=== PATIENT | male | born 1995 | race American Indian/Alaskan Native ===

== ENCOUNTER 2019-02-09 18:22 | Emergency (ER) | payer SELFPAY ==
--- NOTE | 2019-02-09 19:51 | Event Note ---
ED Screening Note ED Screening Note: states that his left elbow locked up and he is not able to move it no fall or injury no heavy lifting no pmhx no allergies to meds This initial assessment/diagnostic orders/clinical plan/treatment(s) is/are subject to change based on patients health status, clinical progression and re- assessment by fellow clinical providers in the ED. Further treatment and workup at subsequent clinical providers discretion. Patient/guardian urged not to elope from the ED as their condition may be serious if not clinically assessed and managed. Initial orders include: XR left elbow
--- NOTE | 2019-02-09 21:04 | XRay Report ---
LEFT ELBOW 4 VIEWS INDICATION / CLINICAL INFORMATION: left elbow in locked position, pain with flexion COMPARISON: None available. FINDINGS: BONES and JOINT(S): No acute fracture or subluxation. No significant arthritis. SOFT TISSUES: There is a small joint effusion without an additional significant soft tissue abnormali ties. ADDITIONAL FINDINGS: None. IMPRESSION: Small left elbow joint effusion without an acute osseous abnormality. Signer Name: Zohaib Tran MD Signed: 02/09/2019 9:00 PM Workstation Name: [id number]
--- NOTE | 2019-02-09 22:43 | Emergency Department Report ---
ED General Adult HPI - General Chief complaint: Extremity Injury, Upper Stated complaint: LFT ELBOW LOCKED/PAIN Time Seen by Provider: 02/09/19 19:49 Source: patient Mode of arrival: Ambulatory Limitations: No Limitations - History of Present Illness Initial comments: Patient presents to the emergency department with a chief complaint left elbow pain 2 days. Patient states that the pain started 2 days ago after moving. Patient states he's had this once before secondary to increased movement. Patient denies any other injury or trauma to that region. -: Sudden Location: upper extremity Radiation: non-radiation Severity scale (0 -10): 6 Quality: sharp Consistency: constant Improves with: rest Worsens with: movement Associated Symptoms: denies other symptoms Treatments Prior to Arrival: none - Related Data Previous Rx's Medication Instructions Recorded Last Taken Type Naproxen [Naprosyn] 500 mg PO BID PRN #20 tablet 02/09/19 Unknown Rx predniSONE [Deltasone] 20 mg PO DAILY #15 tablet 02/09/19 Unknown Rx Allergies Allergy/AdvReac Type Severity Reaction Status Date / Time No Known Allergies Allergy Verified 02/09/19 19:51 ED Review of Systems ROS: Stated complaint: LFT ELBOW LOCKED/PAIN Other details as noted in HPI Comment: All other systems reviewed and negative Constitutional: denies: chills, fever Eyes: denies: eye pain, eye discharge, vision change ENT: denies: ear pain, throat pain Respiratory: denies: cough, shortness of breath, wheezing Cardiovascular: denies: chest pain, palpitations Endocrine: no symptoms reported Gastrointestinal: denies: abdominal pain, nausea, diarrhea Genitourinary: denies: urgency, dysuria Musculoskeletal: denies: back pain, joint swelling, arthralgia Skin: denies: rash, lesions Neurological: denies: headache, weakness, paresthesias Psychiatric: denies: anxiety, depression Hematological/Lymphatic: denies: easy bleeding, easy bruising ED Past Medical Hx - Past Medical History Previous Medical History?: No - Surgical History Past Surgical History?: No - Social History Smoking Status: Never Smoker Substance Use Type: None - Medications Home Medications: Home Medications Medication Instructions Recorded Confirmed Last Taken Type Naproxen [Naprosyn] 500 mg PO BID PRN #20 tablet 02/09/19 Unknown Rx predniSONE [Deltasone] 20 mg PO DAILY #15 tablet 02/09/19 Unknown Rx ED Physical Exam - General Limitations: No Limitations General appearance: alert, in no apparent distress - Head Head exam: Present: atraumatic, normocephalic - Eye Eye exam: Present: normal appearance - ENT ENT exam: Present: mucous membranes moist - Neck Neck exam: Present: normal inspection - Respiratory Respiratory exam: Present: normal lung sounds bilaterally. Absent: respiratory distress - Cardiovascular Cardiovascular Exam: Present: regular rate, normal rhythm. Absent: systolic murmur, diastolic murmur, rubs, gallop - Extremities Exam Extremities exam: Present: other (the patient has tenderness to palpation of the lateral aspect of left elbow. Tenderness is along the lateral epicondyles and the tendon does inserted at that point) - Back Exam Back exam: Present: normal inspection - Neurological Exam Neurological exam: Present: alert, oriented X3 - Psychiatric Psychiatric exam: Present: normal affect, normal mood - Skin Skin exam: Present: warm, dry, intact, normal color. Absent: rash ED Course Vital Signs 02/09/19 18:40 Temperature 98.6 F Pulse Rate 89 Respiratory 17 Rate Blood Pressure 134/64 O2 Sat by Pulse 97 Oximetry ED Medical Decision Making - Radiology Data Radiology results: report reviewed - Medical Decision Making Results discussed with patient Patient instructed to use ice packs Critical care attestation.: If time is entered above; I have spent that time in minutes in the direct care of this critically ill patient, excluding procedure time. ED Disposition Clinical Impression: Tendonitis, Bursitis Disposition: - TO HOME OR SELFCARE Is pt being admited?: No Does the pt Need Aspirin: No Condition: Fair Instructions: Elbow Bursitis (ED), Tendinitis (ED) Additional Instructions: return if worse Referrals: [facility] [Provider Group] - 3-5 Days [facility] [Provider Group] - 3-5 Days Forms: Work/School Release Form(ED) Time of Disposition: 22:42
[2019-02-09 23:31] VITALS: BP 130/70
== END 2019-02-09 23:00 | disposition home or self-care (01) ==
LOC: ED 18:22
DX: M77.9 Enthesopathy, unspecified (principal)